=== PATIENT | male | born 1955 | race African-American/Black ===

== ENCOUNTER 2019-09-16 13:09 | Emergency (ER) | payer OTHER ==
[~2019-09-16] VITALS: Ht 172.7 cm; Wt 87.0 kg
[2019-09-16] MEDS ORDERED: IBUPROFEN 600MG TABLET PO NR (14:59)
[2019-09-16 15:20] VITALS: BP 133/83
== END 2019-09-16 15:28 | disposition home or self-care (01) ==
LOC: ER 13:21
DX: M54.31 Sciatica, right side (principal); I10 Essential (primary) hypertension
CPT/HCPCS: 99283